=== PATIENT | female | born 1945 | race Caucasian/White ===

== ENCOUNTER 2017-07-21 08:15 | Outpatient (CLI) | payer MEDICARE ==
--- OUTSIDE RECORDS SUMMARY | 2017-07-27 11:59 | XMS | Clinical Summary ---
:1945 Author Organization [facility] Address [address] [place] [address] Phone Care Team Providers Name Role Phone , Primary Care Provider Unavailable Allergies Not on File Current Medications Not on file Active Problems Not on file Social History Tobacco Use Types Packs/Day Years Used Date Never Assessed Sex Assigned at Date Recorded Not on file Last Filed Vital Signs Not on file Plan of Treatment Not on file Results Not on filefrom Last 3 Months
--- NOTE | 2017-08-05 16:12 | MMO ---
BILATERAL MAMMOGRAMS 07/21/17 HISTORY: Screening mammography. COMPARISON: Prior outside study from [facility] dated 01/24/2014 and 01/07/2010. FINDINGS: Scattered fibroglandular densities and benign appearing calcifications are again demonstrated. Metal lic marker in the right breast indicates region of prior biopsy. There is no new dominant mass or cruz spicious calcification. The study was evaluated with the assistance of computer aided detection. IMPRESSION: BI-RADS 2: Benign Finding(s) Routine annual screening mammography (for women over age 40). POS: [facility]
== END 2017-07-21 08:16 | disposition home or self-care (01) ==
LOC: SCSMAMMO 08:15
DX: Z12.31 Encounter for screening mammogram for malignant neoplasm of breast (principal)
CPT/HCPCS: 77067; G0202

== ENCOUNTER 2017-10-01 09:39 | Day surgery (SDC) | payer MEDICARE ==
[2017-09-30 14:44] VITALS: BMI 23.9
[2017-10-01] MEDS ORDERED: Oxymetazoline HCl 0.05% ( 15 ML ) ONE ×2 (11:33→12:03)
[2017-10-01 11:34] LABS: Hemoglobin 14.5 g/dL (12.0-16.0)
[2017-10-01 11:51] LABS: Anion Gap 12 mmol/L (10-20); BUN (Urea Nitrogen) 8 mg/dL (9.8-20.1); Calc. Creatinine Clearance 82 mL/min (70-130); Calcium 9.6 mg/dL (7.8-10.44); Carbon Dioxide 29 mmol/L (23-31); Chloride 107 mmol/L (98-107); Estimated GFR-MDRD 86; Glucose 101 mg/dL (83-110); Sodium 144 mmol/L (136-145)
[2017-10-01] MEDS ORDERED: Bacitracin Zinc Ointment 30 gm TUBE ONE (12:03)
[2017-10-01] MEDS ORDERED: Lidocaine 1% w/Epinephrine 1:200K 30 ML VIAL ONE (12:03)
[2017-10-01] MEDS ORDERED: Fentanyl 100 MCG/2 ML VIAL ONE ×3 (12:16→13:45)
[2017-10-01] MEDS ORDERED: Midazolam HCl 2 mg/2 ml Vial ONE (12:16)
[2017-10-01] MEDS ORDERED: Lidocaine 1% PF 5 ML VIAL ONE (13:51)
[2017-10-01] MEDS ORDERED: PROPOFOL 200 MG/20 ML VIAL ONE (13:51)
[2017-10-01] MEDS ORDERED: Dexamethasone 20 MG/5 ML VIAL ONE (13:51)
[2017-10-01] MEDS ORDERED: Naloxone HCl 0.4 mg/ml Vial ONE (13:51)
[2017-10-01] MEDS ORDERED: Glycopyrrolate 0.2 MG/ML 5 ML SYRINGE ONE (13:51)
[2017-10-01] MEDS ORDERED: Ondansetron HCl/PF 4 MG/2 ML Vial ONE (13:51)
--- NOTE | 2017-10-01 14:25 | EKG ---
Test Reason : PREOP Blood Pressure : / mmHG Vent. Rate : 072 BPM Atrial Rate : 072 BPM P-R Int : 146 ms QRS Dur : 082 ms QT Int : 400 ms P-R-T Axes : 062 055 047 degrees QTc Int : 438 ms Normal sinus rhythm Normal ECG No previous ECGs available Confirmed by DR. Amber BARTON ([id number]) on 10/01/2017 2:24:22 PM Referred By: CRISTY Confirmed By:DR. Amber BARTON
[2017-10-01] MEDS ORDERED: Hydrocodone-Acetamin 15 ML UDCUP ONE (14:49)
--- NOTE | 2017-10-01 19:37 | OP ---
PREOPERATIVE DIAGNOSES: Left maxillary sinus mass, left chronic maxillary sinusitis, left chronic et hmoid sinusitis, left chronic frontal sinusitis. PROCEDURES PERFORMED: Left maxillary antrostomy with removal of tissue, left total ethmoidectomy, le ft frontal sinusotomy. PROCEDURE IN DETAIL: After consent was obtained, the patient was identified, brought to the operatin g room and placed on the operating table in supine position. General endotracheal anesthesia was obt ained. The patient was positioned for sinus surgery. The nose was decongested with topical Afrin an d lateral nasal leija and middle turbinate region was infiltrated with 1% lidocaine with 1:10,000 epi nephrine. Accessory ostia was found inferior to the natural os of the maxillary sinus through which we could see a mass-like structure. We then removed the uncinate and disarticulated along the latera l nasal wall and removed the uncinate with the microdebrider. This then allowed for dissection and t he suprabullar area up to the frontal sinus where the natural os of the frontal sinus was identified and enlarged. We were then able to proceed posteriorly through the grand lamella where complete ethm oidectomy was performed. The limits of dissection being the medial orbital wall and the phase of sph enoid. We then enlarged the natural os and connected with the accessory ostia was visible with the m ass. A large polypoid mass was then encountered associated with purulence. Biopsy was sent for juan walker histologic evaluation. We used the curved debrider removing the remainder of the polypoid mass as well as the purulent debris. We irrigated the sinus and ascertained hemostasis. Awakened the patien t, extubated, and taken to recovery room in a stable condition prior to discharge home.
== END 2017-10-01 15:45 | disposition home or self-care (01) ==
LOC: SDC 09:39
PROVIDERS: ATTEND Specialist
PROC: 099R7ZZ Drainage of Left Maxillary Sinus, Via Natural or Artificial Opening (ICD-10-PCS; principal; 2017-10-01)
PROC: 09BT0ZZ Excision of Left Frontal Sinus, Open Approach (ICD-10-PCS; 2017-10-01)
PROC: 09TV0ZZ Resection of Left Ethmoid Sinus, Open Approach (ICD-10-PCS; 2017-10-01)
DX: J32.0 Chronic maxillary sinusitis (principal); J32.1 Chronic frontal sinusitis; J32.2 Chronic ethmoidal sinusitis; I10 Essential (primary) hypertension; M19.90 Unspecified osteoarthritis, unspecified site; E89.3 Postprocedural hypopituitarism; E03.9 Hypothyroidism, unspecified; E78.5 Hyperlipidemia, unspecified; Z79.899 Other long term (current) drug therapy; Z98.890 Other specified postprocedural states
CPT/HCPCS: 36415; 80048; 85014; 85018; 88305; 93005; 93010; 96374; J0131; J1100; J2001; J2250; J2310; J2405; J2704; J3010

== ENCOUNTER 2019-09-12 14:46 | Outpatient (CLI) | payer MEDICARE ==
--- NOTE | 2019-09-12 15:36 | MMO ---
Bilateral MAMMO Bilat Screen [facility]. CLINICAL HISTORY: Patient is 74 years old and is seen for screening. The patient has no family history of breast cancer. The patient has no personal history of cancer. VIEWS: The views performed were: bilateral craniocaudal with tomosynthesis and bilateral mediolateral oblique with tomosynthesis. FILMS COMPARED: The present examination has been compared to prior imaging studies performed at [facility] on 01/07/2010, 01/24/2014 and 07/21/2017. This study has been interpreted with the assistance of computer-aided detection. MAMMOGRAM FINDINGS: There are scattered fibroglandular densities. Finding 1: There are stable benign appearing calcifications seen in both breasts. There are also vascular calcifications. Finding 2: There is a biopsy clip seen in the right breast. There are no suspicious masses, suspicious calcifications, or new areas of architectural distortion. IMPRESSION: THERE IS NO MAMMOGRAPHIC EVIDENCE OF MALIGNANCY. A ROUTINE FOLLOW-UP MAMMOGRAM IN 1 YEAR IS RECOMMENDED. THE RESULTS OF THIS EXAM WERE SENT TO THE PATIENT. ACR BI-RADS Category 2 - Benign finding MAMMOGRAPHY NOTE: 1. A negative mammogram report should not delay a biopsy if a dominant of clinically suspicious mass is present. 2. Approximately 10% to 15% of breast cancers are not detected by mammography. 3. Adenosis and dense breasts may obscure an underlying neoplasm. Reported by: FABIANO CHAHAL MD Electonically Signed: [id number]
== END 2019-09-12 14:47 | disposition home or self-care (01) ==
LOC: BICMAMMO 14:46
PROVIDERS: ATTEND Internal Medicine
DX: Z12.31 Encounter for screening mammogram for malignant neoplasm of breast (principal)
CPT/HCPCS: 77063; 77067

== ENCOUNTER 2020-12-26 16:30 | Inpatient (IN) | payer MEDICARE ==
[2021-01-11 10:31] VITALS: BMI 24.4
[2021-01-14] MEDS ORDERED: Tranexamic Acid 1,000 MG/10 ML VIAL ONE (06:58)
[2021-01-14] MEDS ORDERED: Sodium Chloride 0.9% 100 ML ONE (06:58)
[2021-01-14] MEDS ORDERED: Vancomycin HCl 500 MG VIAL ONE (06:59)
[2021-01-14] MEDS ORDERED: Vancomycin 1 GM/200 ML BAG ONE (07:00)
[2021-01-14] MEDS ORDERED: Fentanyl 100 MCG/2 ML VIAL ONE ×2 (08:14→08:37)
[2021-01-14] MEDS ORDERED: Propofol 1,000 MG/100 ML VIAL IV ONE (08:37)
[2021-01-14] MEDS ORDERED: Scopolamine 1.5 mg/72 hour Patch ONE (08:37)
[2021-01-14] MEDS ORDERED: Ropivacaine 0.2% HCl/PF 20 ML ONE (08:37)
[2021-01-14] MEDS ORDERED: Phenylephrine 10 MG/ML VIAL ONE (08:37)
[2021-01-14] MEDS ORDERED: diphenhydrAMINE 25 MG CAP PO PRN ×2 (08:45→09:30)
[2021-01-14] MEDS ORDERED: Promethazine HCl 25 MG/ML VIAL IM PRN ×3 (08:45→11:13)
[2021-01-14] MEDS ORDERED: HYDROcodone/Acetaminophen 10/325 mg Tablet PO PRN ×2 (08:45)
[2021-01-14] MEDS ORDERED: Acetaminophen 325 MG TAB PO PRN (08:45)
[2021-01-14] MEDS ORDERED: Ondansetron PF 4 MG/2 ML Vial IVP PRN ×2 (08:45→09:30)
[2021-01-14] MEDS ORDERED: Zolpidem Tartrate 5 MG TAB PO PRN ×2 (08:45→09:30)
[2021-01-14] MEDS ORDERED: Lidocaine 2% Jelly 5 ML TUBE ONE (08:47)
[2021-01-14] MEDS ORDERED: PROPOFOL 200 MG/20 ML VIAL ONE ×2 (08:55)
[2021-01-14] MEDS ORDERED: PHENYLEPHRINE-NS 100 MCG/ML 10 ML SYRINGE ONE (08:55)
[2021-01-14] MEDS ORDERED: Glycopyrrolate 0.2 MG/ML 5 ML SYRINGE ONE (08:55)
[2021-01-14] MEDS ORDERED: Rocuronium Bromide 10 MG/ML (10ML VIAL) ONE (08:55)
[2021-01-14] MEDS ORDERED: Lidocaine 1.5% w/Epi 1:200K 30 ML VIAL (Epid Use) ONE (08:55)
[2021-01-14] MEDS ORDERED: Multivitamin W/ Minerals 1 TAB PO SCH (09:00)
[2021-01-14] MEDS ORDERED: Levothyroxine Sodium 75 MCG TAB PO SCH (09:00)
[2021-01-14] MEDS ORDERED: Non-Formulary Item 1 EACH (Zinc [Zinc] 50 MG Tablet) PO SCH (09:00)
[2021-01-14] MEDS ORDERED: CYANOCOBALAMIN 2000 MCG PO SCH (09:00)
[2021-01-14] MEDS ORDERED: Non-Formulary Item 1 EACH (Ascorbic Acid [Vitamin C] 1,000 MG Tablet) PO SCH (09:00)
[2021-01-14] MEDS ORDERED: Non-Formulary Item 1 EACH (Magnesium Oxide [Magnesium] 400 MG Capsule) PO SCH (09:00)
[2021-01-14] MEDS ORDERED: [UNRECOGNIZED DRUG - OTHER] PO SCH (09:00)
[2021-01-14] MEDS ORDERED: Non-Formulary Item 1 EACH (Folic Acid [Folic Acid] 0.8 MG Capsule) PO SCH (09:00)
[2021-01-14] MEDS ORDERED: Non-Formulary Item 1 EACH (Cholecalciferol (Vitamin D3) [Vitamin D3] 2,000 UNIT Capsule) PO SCH (09:00)
[2021-01-14] MEDS ORDERED: Naloxone HCl 0.4 mg/ml Vial IVP PRN (09:30)
[2021-01-14] MEDS ORDERED: diphenhydrAMINE 50 MG/ML VIAL IM PRN (09:30)
[2021-01-14] MEDS ORDERED: diphenhydrAMINE 50 MG/ML VIAL IVP PRN (09:30)
[2021-01-14] MEDS ORDERED: Naloxone HCl 0.4 mg/ml Vial IV PRN (09:30)
[2021-01-14] MEDS ORDERED: traMADol HCl 50 MG TAB PO PRN ×2 (09:30)
[2021-01-14] MEDS ORDERED: HYDROcodone/Acetaminophen 5/325 mg Tablet PO PRN ×2 (09:30)
[2021-01-14] MEDS ORDERED: Hydrocerin (Eucerin) Cream 120 gm Jar TOP PRN (09:30)
[2021-01-14] MEDS ORDERED: Promethazine HCl 25 MG SUPP PR PRN (09:30)
[2021-01-14] MEDS ORDERED: Bupivacaine 0.25% 10 ML VIAL EPIDURAL PRN (09:30)
[2021-01-14] MEDS ORDERED: Acetaminophen 500 MG TAB PO PRN (09:35)
[2021-01-14] MEDS ORDERED: Promethazine HCl 25 MG/ML VIAL SLOW IVP PRN (11:13)
[2021-01-14] MEDS ORDERED: Ondansetron HCl/PF 4 MG/2 ML Vial IVP PRN (11:13)
[2021-01-14] MEDS ORDERED: Ketorolac Tromethamine 30 MG/ML VIAL IVP SCH (14:00)
[2021-01-14] MEDS: Senokot S 8.6-50 MG TAB PO SCH ×2 (17:52→20:58)
[2021-01-14] MEDS: Ketorolac Tromethamine 30 MG/ML VIAL IVP SCH ×3 (17:52→23:34)
[2021-01-14] MEDS: CEFAZOLIN 2 GM in Premix Bag 1 BAG IVPB SCH ×3 (17:58→18:01)
[2021-01-14] MEDS: Sodium Chloride 0.9% 1,000 ML IV SCH ×2 (18:07→19:44)
[2021-01-14] MEDS: Aspirin 81 mg Enteric Coated Tablet PO SCH ×2 (18:09→20:59)
[2021-01-14] MEDS: Ferrous Gluconate 324 MG TAB PO SCH ×2 (18:10→20:58)
[2021-01-14] MEDS: Lisinopril 20 MG TAB PO SCH (18:10)
[2021-01-14] MEDS: Rosuvastatin 20 MG TAB PO SCH (20:59)
[2021-01-15] MEDS: CEFAZOLIN 2 GM in Premix Bag 1 BAG IVPB SCH (02:47)
[2021-01-15] MEDS: Sodium Chloride 0.9% 1,000 ML IV SCH ×2 (04:15→14:45)
[2021-01-15] MEDS: fentaNYL Citrate/PF 500 MCG, Bupivacaine 10 ML in Sodium Chloride 0.9% 80 ML EPIDURAL SCH ×2 (05:04→21:28)
[2021-01-15] MEDS: Levothyroxine Sodium 75 MCG TAB PO SCH (05:04)
[2021-01-15] MEDS: Ketorolac Tromethamine 30 MG/ML VIAL IVP SCH ×4 (05:04→23:52)
[2021-01-15 06:13] LABS: Hemoglobin 10.8 g/dL (12.0-16.0); Mean Corpuscular HGB CONC 33.6 g/dL (32.0-36.0); Mean Corpuscular Hemoglobin 30.6 pg (27.0-31.0); Mean Corpuscular Volume 91.1 fL (78.0-98.0); Platelet Count 212 thou/uL (130-400); RBC Distribution Width 11.7 % (11.5-14.5); Red Blood Cell (RBC) Count 3.54 mill/uL (4.20-5.40); White Blood Cell (WBC) Count 8.9 thou/uL (4.8-10.8)
[2021-01-15] MEDS: Ferrous Gluconate 324 MG TAB PO SCH ×2 (08:47→20:14)
[2021-01-15] MEDS: Senokot S 8.6-50 MG TAB PO SCH ×2 (08:49→20:14)
[2021-01-15] MEDS: Folic Acid 1 MG TAB PO SCH (08:49)
[2021-01-15] MEDS: Ascorbic Acid 500 mg Chewable Tablet PO SCH (08:49)
[2021-01-15] MEDS: Cholecalciferol 1,000 UNITS (25 MCG) TAB PO SCH (08:49)
[2021-01-15] MEDS: Cyanocobalamin (Vitamin B-12) 1,000 MCG TAB PO SCH (08:49)
[2021-01-15] MEDS: Aspirin 81 mg Enteric Coated Tablet PO SCH ×2 (08:49→20:14)
[2021-01-15] MEDS: Magnesium Oxide 400 MG TAB PO SCH (08:50)
[2021-01-15] MEDS: Lisinopril 20 MG TAB PO SCH (08:50)
[2021-01-15] MEDS: Multivitamin W/ Minerals 1 TAB PO SCH (08:50)
[2021-01-15] MEDS: Zinc Sulfate 220 MG CAP PO SCH (09:06)
[2021-01-15] MEDS: Rosuvastatin 20 MG TAB PO SCH (20:14)
[2021-01-16] MEDS: Sodium Chloride 0.9% 1,000 ML IV SCH ×2 (00:35→10:45)
[2021-01-16] MEDS: Ketorolac Tromethamine 30 MG/ML VIAL IVP SCH (05:30)
[2021-01-16] MEDS: Levothyroxine Sodium 75 MCG TAB PO SCH (05:30)
[2021-01-16 05:42] LABS: Mean Corpuscular HGB CONC 33.2 g/dL (32.0-36.0); Mean Corpuscular Hemoglobin 30.4 pg (27.0-31.0); Mean Corpuscular Volume 91.5 fL (78.0-98.0); Mean Platelet Volume 8.5 fL (7.4-10.4); Platelet Count 199 thou/uL (130-400); RBC Distribution Width 11.9 % (11.5-14.5); Red Blood Cell (RBC) Count 3.31 mill/uL (4.20-5.40); White Blood Cell (WBC) Count 7.8 thou/uL (4.8-10.8)
[2021-01-16] MEDS: Ascorbic Acid 500 mg Chewable Tablet PO SCH (08:40)
[2021-01-16] MEDS: Senokot S 8.6-50 MG TAB PO SCH (08:41)
[2021-01-16] MEDS: Multivitamin W/ Minerals 1 TAB PO SCH (08:41)
[2021-01-16] MEDS: Aspirin 81 mg Enteric Coated Tablet PO SCH (08:41)
[2021-01-16] MEDS: Cyanocobalamin (Vitamin B-12) 1,000 MCG TAB PO SCH (08:41)
[2021-01-16] MEDS: Cholecalciferol 1,000 UNITS (25 MCG) TAB PO SCH (08:41)
[2021-01-16] MEDS: Folic Acid 1 MG TAB PO SCH (08:41)
[2021-01-16] MEDS: Zinc Sulfate 220 MG CAP PO SCH (08:42)
[2021-01-16] MEDS: Magnesium Oxide 400 MG TAB PO SCH (08:42)
[2021-01-16] MEDS: Lisinopril 20 MG TAB PO SCH (08:42)
[2021-01-16] MEDS: Ferrous Gluconate 324 MG TAB PO SCH (08:43)
[2021-01-16 11:58] VITALS: BP 101/51; TEMP 98.3
== END 2021-01-16 14:45 | disposition home or self-care (01) | DRG 470 ==
LOC: NSY 01-14 06:15 → UNDOADMIN 01-14 06:15 → SURG A 01-14 06:15
PROVIDERS: ADMIT Orthopaedic Surgery; ATTEND Orthopaedic Surgery
PROC: 0SR9039 Replacement of Right Hip Joint with Ceramic Synthetic Substitute, Cemented, Open Approach (ICD-10-PCS; principal; 2021-01-14)
DX: M16.11 Unilateral primary osteoarthritis, right hip (principal); E78.00 Pure hypercholesterolemia, unspecified; E03.9 Hypothyroidism, unspecified; I10 Essential (primary) hypertension; Z20.822 Contact with and (suspected) exposure to COVID-19; Z79.899 Other long term (current) drug therapy; Z79.890 Hormone replacement therapy
CPT/HCPCS: 36415; 85027; C1713; J0690; J1200; J1885; J2001; J2370; J2550; J2704; J2795; J3010; J3370; J3490

== ENCOUNTER 2021-01-09 10:51 | Outpatient (CLI) | payer MEDICARE ==
[2021-01-09 12:22] LABS: Bilirubin Neg (Negative); Blood, Urine Negative (Negative); Clarity Clear (Clear); Glucose, Urine (Dipstick) Normal (Negative); Ketone, Urine Negative (Negative); Leukocyte Negative (Negative); Nitrite Negative (Negative); Protein, Urine (Dipstick) Negative (Neg-Trace); Urobilinogen Normal mg/dL (Less than 2)
[2021-01-09 12:31] LABS: #Basophils 0.1 10x3/uL (0.0-0.2); #Eosinphils 0.2 10x3/uL (0.0-0.5); #Monocytes 0.7 10x3/uL (0.0-1.1); %Basophils 0.9 % (0.0-2.0); %Eosinophils 2.6 % (0.0-6.0); %Lymphocytes 32.3 % (18.0-47.0); %Monocytes 12.1 % (0.0-10.0); %Neutrophils 51.9 % (40.0-75.0); Hemoglobin 13.4 g/dL (12.0-15.5); Mean Corpuscular HGB CONC 32.7 g/dL (32.0-36.0); Mean Corpuscular Hemoglobin 29.6 pg (27.0-33.0); Mean Corpuscular Volume 90.7 fl (81.6-98.3); Mean Platelet Volume 10.1 fl (7.4-10.4); Platelet Count 260 10x3/uL (150-450); RBC Distribution Width 12.8 % (11.5-14.5); Red Blood Cell (RBC) Count 4.52 10x6/uL (3.90-5.03); White Blood Cell (WBC) Count 5.8 10x3/uL (3.5-10.5)
[2021-01-09 12:38] LABS: Anion Gap 11 mmol/L (10-20); BUN (Urea Nitrogen) 14 mg/dL (9.8-20.1); Calc. Creatinine Clearance 0 mL/min (70-130); Calcium 9.4 mg/dL (7.8-10.44); Carbon Dioxide 31 mmol/L (23-31); Chloride 105 mmol/L (98-107); Glucose 70 mg/dL (83-110); Potassium 4.6 mmol/L (3.5-5.1); Sodium 142 mmol/L (136-145)
[2021-01-09 12:48] LABS: Bacteria/HPF None Seen HPF (None Seen); RBC/HPF None Seen HPF (0-3); Squamous Epithelial None Seen HPF (0-3); WBC/HPF None Seen HPF (0-3)
[2021-01-09 14:00] LABS: INR-International Normal Ratio 0.9; Prothrombin Time 10.2 sec (9.5-12.1)
[2021-01-09 21:22] LABS: SARS-CoV-2 PCR by NAA Not Detected (NotDetected)
== END 2021-01-09 10:52 | disposition home or self-care (01) ==
LOC: LABBT 10:51
PROVIDERS: ATTEND Orthopaedic Surgery
DX: Z01.818 Encounter for other preprocedural examination (principal); M16.11 Unilateral primary osteoarthritis, right hip; Z20.822 Contact with and (suspected) exposure to COVID-19
CPT/HCPCS: 80048; 81001; 85025; 85610; 87081; 93005; U0003; U0005; 87635; 93010

== ENCOUNTER 2021-07-19 13:50 | Outpatient (CLI) | payer MEDICARE | END 2021-07-19 13:51 | disposition home or self-care (01) | LOC: CTENTCT 13:50 | PROVIDERS: ATTEND Specialist | DX: J32.8 Other chronic sinusitis (principal) | CPT/HCPCS: 70486 ==

== ENCOUNTER 2022-12-01 10:26 | Outpatient (CLI) | payer MEDICARE | END 2022-12-01 10:27 | disposition home or self-care (01) | LOC: TBSIIMAG 10:26 | PROVIDERS: ATTEND Internal Medicine | DX: M47.26 Other spondylosis with radiculopathy, lumbar region (principal); M47.27 Other spondylosis with radiculopathy, lumbosacral region; M47.25 Other spondylosis with radiculopathy, thoracolumbar region | CPT/HCPCS: 72148 ==

== ENCOUNTER 2024-11-14 08:37 | Outpatient (CLI) | payer MEDICARE | END 2024-11-14 08:38 | disposition home or self-care (01) | LOC: BICMAMMO 08:37 | PROVIDERS: ATTEND Radiology Radiation Oncology | DX: Z08 Encounter for follow-up examination after completed treatment for malignant neoplasm (principal); Z85.3 Personal history of malignant neoplasm of breast | CPT/HCPCS: 77066; G0279 ==